=== PATIENT | male | born 1985 | race Caucasian/White ===

== ENCOUNTER 2016-06-18 18:44 | Emergency (ER) | payer OTHER ==
[2016-06-18] MEDS ORDERED: KETOROLAC TROMETHAMINE 60 MG/2 ML SDV IM ONE (19:57)
[2016-06-18] MEDS ORDERED: ONDANSETRON 4 MG TAB.RAPDIS SL ONE (19:57)
--- NOTE | 2016-06-18 19:57 | ER Document Report ---
ED Medical Screen (RME) - General Chief Complaint: Headache Stated Complaint: FEVER/HEADACHE Time seen by provider: 19:55 Mode of Arrival: Ambulatory Information source: Patient TRAVEL OUTSIDE OF THE [place] IN LAST 30 DAYS: No - HPI Patient complains to provider of: headache, fever, low back pain Onset: Last week Onset/Duration: Gradual, Persistent Quality of pain: Achy, Fullness, Pressure Severity: Moderate Pain Level: 3 Associated Symptoms: Fever, Headache Exacerbated by: Denies Relieved by: Denies Similar symptoms previously: No Recently seen / treated by doctor: No Notes: 06/18/16 19:56 Patient is a 30-year-old male who presents to emergency room complaining of fever and headache that's been going on every day for the past week, he reports low back pain as well, MAXIMUM TEMPERATURE was 102.3, he denies any cough, cold or congestion, no nausea, vomiting or diarrhea, no dysuria or hematuria, no sick contacts, no recent long distance - Related Data Allergies/Adverse Reactions: No Known Allergies Allergy (Verified 06/18/16 19:17) Past Medical History Endocrine Medical History: Reports: Hx Hypothyroidism Renal/ Medical History: Denies: Hx Peritoneal Dialysis Psychiatric Medical History: Reports: Hx Depression, Hx Post Traumatic Stress Disorder Traumatic Medical History: Reports: Hx Traumatic Brain Injury Past Surgical History: Reports: Hx Appendectomy - Immunizations Hx Diphtheria, Pertussis, Tetanus Vaccination: No - unknown Physical Exam - Vital signs Vitals: Temp Pulse Resp BP Pulse Ox 99.3 F 103 H 20 120/85 97 06/18/16 19:18 06/18/16 19:18 06/18/16 19:18 06/18/16 19:18 06/18/16 19:18 Course - Vital Signs Vital signs: Temp Pulse Resp BP Pulse Ox 99.3 F 103 H 20 120/85 97 06/18/16 19:18 06/18/16 19:18 06/18/16 19:18 06/18/16 19:18 06/18/16 19:18
[2016-06-18 20:42] LABS: ABSOLUTE LYMPHOCYTES (AUTO) 1.1 10^3/uL (0.5-4.7); ABSOLUTE MONOCYTES (AUTO) 1.1 10^3/uL (0.1-1.4); ABSOLUTE NEUT (AUTO) 5.4 10^3/uL (1.7-8.2); BASOPHILS % (AUTO) 0.3 % (0-2); EOSINOPHILS % (AUTO) 0.4 % (0-6); HEMOGLOBIN 13.1 g/dL (13.5-17.0); HGB HCT DIFFERENCE 0.3; LYMPHOCYTES % (AUTO) 14.4 % (13-45); MEAN CORPUSCULAR HEMOGLOBIN 26.1 pg (27.0-33.4); MEAN CORPUSCULAR HGB CONC 33.6 g/dL (32.0-36.0); MEAN CORPUSCULAR VOLUME 78 fl (80-97); MONOCYTES % (AUTO) 14.6 % (3-13); RED BLOOD COUNT 5.03 10^6/uL (4.35-5.55); RED CELL DISTRIBUTION WIDTH 14.1 % (11.5-14.0); SEGMENTED NEUTROPHILS % (AUTO) 70.3 % (42-78); WHITE BLOOD COUNT 7.7 10^3/uL (4.0-10.5)
[2016-06-18 20:57] LABS: APPEARANCE,URINE CLEAR; BILIRUBIN,URINE NEGATIVE (NEGATIVE); GLUCOSE, URINE NEGATIVE (NEGATIVE); KETONES,URINE NEGATIVE (NEGATIVE); LEUKOCYTE ESTERASE,URINE NEGATIVE (NEGATIVE); NITRITE,URINE NEGATIVE (NEGATIVE); PROTEIN,URINE NEGATIVE (NEGATIVE); URINE SPECIFIC GRAVITY 1.016; UROBILINOGEN,URINE NEGATIVE mg/dL (<2.0)
[2016-06-18 20:59] LABS: ALANINE AMINOTRANSFERASE 25 U/L (21-72); ALBUMIN 4.2 g/dL (3.5-5.0); ALKALINE PHOSPHATASE 71 U/L (38-126); ANION GAP 13 (5-19); ASPARTATE AMINO TRANSFERASE 13 U/L (17-59); BILIRUBIN,DIRECT 0.1 mg/dL (0.0-0.4); BILIRUBIN,TOTAL 0.5 mg/dL (0.2-1.3); BLOOD UREA NITROGEN 13 mg/dL (7-20); CALCIUM 9.5 mg/dL (8.4-10.2); CARBON DIOXIDE 26 mmol/L (22-30); CHLORIDE 104 mmol/L (98-107); CREATININE RESULT 0.99 mg/dL (0.52-1.25); GLUCOSE 93 mg/dL (75-110); POTASSIUM 4.3 mmol/L (3.6-5.0); SODIUM 143.1 mmol/L (137-145); TOTAL PROTEIN 7.6 g/dL (6.3-8.2)
[2016-06-18] MEDS ORDERED: LORAZEPAM INJ 2 MG/1 ML VIAL IV ONE (22:24)
[2016-06-18] MEDS ORDERED: LIDOCAINE 1%/EPINEPHRINE INJ 20 ML VIAL INJ ONE (22:24)
[2016-06-18] MEDS ORDERED: NORMAL SALINE 1000 ML 1,000 ML IV ONE (22:24)
[2016-06-18] MEDS ORDERED: PROCHLORPERAZINE EDISYLATE INJ 10 MG/2 ML VIAL IV ONE (22:27)
--- NOTE | 2016-06-19 01:50 | ER Document Report ---
ED General - General Chief Complaint: Headache Stated Complaint: FEVER/HEADACHE Mode of Arrival: Ambulatory Notes: Patient is a 30-year-old male with past medical history of migraine headaches who presents with 2 days of fever and headache. Describes the headache as a diffuse bitemporal, constant, throbbing headache. It is worsened by light and sounds. States this feels similar primary migraine headaches but he has never had this in conjunction with a fever. Denies any neck pain, altered mental status, vomiting, cough, sputum production or abdominal pain. He has not seen his primary care doctor regarding today's concerns. He has not tried anything to improve his symptoms began ibuprofen which he states did not provide any relief. No known sick contacts. TRAVEL OUTSIDE OF THE [place] IN LAST 30 DAYS: No - Related Data Allergies/Adverse Reactions: No Known Allergies Allergy (Verified 06/18/16 19:17) Past Medical History - General Information source: Patient - Social History Smoking Status: Never Smoker Chew tobacco use (# tins/day): No Frequency of alcohol use: Rare Drug Abuse: None Lives with: Spouse/Significant other Family History: Reviewed & Not Pertinent Endocrine Medical History: Reports: Hx Hypothyroidism Renal/ Medical History: Denies: Hx Peritoneal Dialysis Psychiatric Medical History: Reports: Hx Depression, Hx Post Traumatic Stress Disorder Traumatic Medical History: Reports: Hx Traumatic Brain Injury Past Surgical History: Reports: Hx Appendectomy - Immunizations Hx Diphtheria, Pertussis, Tetanus Vaccination: No - unknown Review of Systems - Review of Systems Notes: Constitutional: Positive for fever. HENT: Negative for sore throat. Eyes: Negative for visual changes. Cardiovascular: Negative for chest pain. Respiratory: Negative for shortness of breath. Gastrointestinal: Negative for abdominal pain, vomiting or diarrhea. Genitourinary: Negative for dysuria. Musculoskeletal: Negative for back pain. Skin: Negative for rash. Neurological: Positive for headaches, negative for weakness or numbness. 10 point ROS negative except as marked above and in HPI. Physical Exam - Vital signs Vitals: Temp Pulse Resp BP Pulse Ox 99.3 F 103 H 20 120/85 97 06/18/16 19:18 06/18/16 19:18 06/18/16 19:18 06/18/16 19:18 06/18/16 19:18 Interpretation: Tachycardic Notes: PHYSICAL EXAMINATION: GENERAL: Well-appearing, well-nourished and in no acute distress. HEAD: Atraumatic, normocephalic. EYES: Pupils equal round and reactive to light, extraocular movements intact, sclera anicteric, conjunctiva are normal. ENT: nares patent, oropharynx clear without exudates. Moist mucous membranes. NECK: Normal range of motion, supple without lymphadenopathy. No meningismus. LUNGS: Breath sounds clear to auscultation bilaterally and equal. No wheezes rales or rhonchi. HEART: Regular rate and rhythm without murmurs ABDOMEN: Soft, nontender, normoactive bowel sounds. No guarding, no rebound. No masses appreciated. EXTREMITIES: Normal range of motion, no pitting or edema. No cyanosis. NEUROLOGICAL: No focal neurological deficits. Moves all extremities spontaneously and on command. PSYCH: Normal mood, normal affect. SKIN: Warm, Dry, normal turgor, no rashes or lesions noted. Course - Re-evaluation Re-evalutation: 06/19/16 01:50 Patient's presentation of a headache in the conjunction of fever likely represents a headache secondary to fever possibly migrainous. He is overall very well in appearance, nontoxic, vitals within normal limits. Laboratories unremarkable. However, given patient's reported fever at home with an associated headache a lumbar puncture was performed to exclude an acute bacterial meningitis. I do not suspect an acute encephalitis given his normal mental status. Results of the CSF are pending at this time. Patient has had complete resolution of his headache here with an administration of a migraine cocktail. 06/19/16 02:45 Patient continues to have resolution of his headache. CSF samples are unremarkable and do not demonstrate any evidence of an acute bacterial meningitis.At this time will discharge with return precautions and follow-up recommendations. Verbal discharge instructions given a the bedside and opportunity for questions given. Medication warnings reviewed. Patient is in agreement with this plan and has verbalized understanding of return precautions and the need for primary care follow-up in the next 24-72 hours. - Vital Signs Vital signs: Temp Pulse Resp BP Pulse Ox 99.3 F 103 H 20 120/85 97 06/18/16 19:18 06/18/16 19:18 06/18/16 19:18 06/18/16 19:18 06/18/16 19:18 - Laboratory Result Diagrams: 06/18/16 20:20 06/18/16 20:20 Laboratory results interpreted by me: 06/18/16 06/18/16 06/18/16 20:20 20:20 20:25 Hgb 13.1 L MCV 78 L MCH 26.1 L RDW 14.1 H Monocytes % 14.6 H AST 13 L Urine Blood SMALL H CSF WBC 06/19/16 00:40 Hgb MCV MCH RDW Monocytes % AST Urine Blood CSF WBC 8 H Discharge - Discharge Clinical Impression: Fever Qualifiers: Fever type: unspecified Qualified Code(s): R50.9 - Fever, unspecified Headache Qualifiers: Headache type: unspecified Headache chronicity pattern: acute headache Intractability: not intractable Qualified Code(s): R51 - Headache Condition: Good Disposition: HOME, SELF-CARE Additional Instructions: Your lumbar puncture was normal today. The remainder labs likewise have remained normal. Follow-up with your primary care doctor regarding today's concerns. Return if you become confused, develop persistent vomiting, you have worsening of your headache, or any other symptoms that are concerning to you.
[2016-06-19 02:03] LABS: APPEARANCE ALL TUBES CLEAR
[2016-06-19 02:04] LABS: RBC AVERAGE 109.5; RBC DILUENT USED NONE USED; RBC DILUTION FACTOR 1; RBC SIDE 1 108; RBC SIDE 2 111; TOTAL RBC SQUARES COUNTED 225
[2016-06-19 02:05] LABS: WHITE BLOOD CELL,CSF 8 /uL (0-5)
[2016-06-19 02:06] LABS: APPEARANCE ALL TUBES CLEAR
[2016-06-19 02:07] LABS: RBC AVERAGE 0.5; RBC DILUENT USED NONE USED; RBC DILUTION FACTOR 1; RBC SIDE 1 1; RBC SIDE 2 0; TOTAL RBC SQUARES COUNTED 225
[2016-06-19 02:08] LABS: GLUCOSE,CSF 55 mg/dL (40-70); WHITE BLOOD CELL,CSF 1 /uL (0-5)
[2016-06-19 03:30] VITALS: BP 120/75
== END 2016-06-19 03:10 | disposition home or self-care (01) ==
LOC: ER 18:44
PROC: 009U3ZX Drainage of Spinal Canal, Percutaneous Approach, Diagnostic (ICD-10-PCS; principal; 2016-06-18)
DX: R51 Headache (principal); R50.9 Fever, unspecified; Z86.69 Personal history of other diseases of the nervous system and sense organs; Z87.820 Personal history of traumatic brain injury
CPT/HCPCS: 99284; 96372; 96361; 96374; 96375; 36415; 87040; 87070; 87205; 85025; 89050; 82945; 84157; 80053; 81001; 62270; J1885; S0119; J3490; J2060; J0780; J7030

== ENCOUNTER 2016-06-24 08:35 | Emergency (ER) | payer OTHER ==
[2016-06-24] MEDS ORDERED: ACETAMINOPHEN 325 MG TABLET PO ONE (09:21)
[2016-06-24] MEDS ORDERED: NORMAL SALINE 1000 ML 1,000 ML IV PRN (09:21)
[2016-06-24] MEDS ORDERED: CEFTRIAXONE 1 GM/D5W RTU 50 ML IV ONE (09:23)
--- NOTE | 2016-06-24 09:23 | ER Document Report ---
ED Medical Screen (RME) - General Chief Complaint: Fever Stated Complaint: FEVER Mode of Arrival: Ambulatory Information source: Patient, [facility] Records Notes: 30 yr old male presents with complaints of fever with no other ocmplaints except for headache mild. Patient notes fever has been ongoing now for 8 days, admits to taking Motrin prior to arrival. Patient was seen here head CBC CMP lumbar puncture performed with no obvious source of infection PHYSICAL EXAMINATION: GENERAL: Well-appearing, well-nourished and in no acute distress. Febrile tachycardic HEAD: Atraumatic, normocephalic. EYES: Pupils equal round extraocular movements intact, conjunctiva are normal. ENT: Nares patent NECK: Normal range of motion LUNGS: No respiratory distress Musculoskeletal: Normal range of motion NEUROLOGICAL: Normal speech, normal gait. PSYCH: Normal mood, normal affect. SKIN: Warm, Dry, normal turgor, no rashes or lesions noted. I have greeted and performed a rapid initial assessment of this patient. A comprehensive ED assessment and evaluation of the patient, analysis of test results and completion of the medical decision making process will be conducted by additional ED providers. TRAVEL OUTSIDE OF THE [place] IN LAST 30 DAYS: No - Related Data Allergies/Adverse Reactions: No Known Allergies Allergy (Verified 06/18/16 19:17) Past Medical History Endocrine Medical History: Reports: Hx Hypothyroidism Renal/ Medical History: Denies: Hx Peritoneal Dialysis Psychiatric Medical History: Reports: Hx Depression, Hx Post Traumatic Stress Disorder Traumatic Medical History: Reports: Hx Traumatic Brain Injury Past Surgical History: Reports: Hx Appendectomy - Immunizations Hx Diphtheria, Pertussis, Tetanus Vaccination: No - unknown Physical Exam - Vital signs Vitals: Temp Pulse Resp BP Pulse Ox 101.0 F H 132 H 16 120/91 H 95 06/24/16 08:38 06/24/16 08:38 06/24/16 08:38 06/24/16 08:38 06/24/16 08:38 Course - Vital Signs Vital signs: Temp Pulse Resp BP Pulse Ox 101.0 F H 132 H 16 120/91 H 95 06/24/16 08:38 06/24/16 08:38 06/24/16 08:38 06/24/16 08:38 06/24/16 08:38
[2016-06-24 09:50] LABS: ABSOLUTE EOSINOPHILS # (AUTO) 0.1 10^3/uL (0.0-0.6); ABSOLUTE MONOCYTES (AUTO) 0.8 10^3/uL (0.1-1.4); ABSOLUTE NEUT (AUTO) 5.9 10^3/uL (1.7-8.2); BASOPHILS % (AUTO) 0.3 % (0-2); EOSINOPHILS % (AUTO) 0.9 % (0-6); HEMATOCRIT 37.4 % (37.9-51.0); HEMOGLOBIN 12.7 g/dL (13.5-17.0); HGB HCT DIFFERENCE 0.7; LYMPHOCYTES % (AUTO) 12.8 % (13-45); MEAN CORPUSCULAR HEMOGLOBIN 25.5 pg (27.0-33.4); MEAN CORPUSCULAR HGB CONC 33.9 g/dL (32.0-36.0); MEAN CORPUSCULAR VOLUME 75 fl (80-97); MONOCYTES % (AUTO) 10.5 % (3-13); RED BLOOD COUNT 4.97 10^6/uL (4.35-5.55); RED CELL DISTRIBUTION WIDTH 13.9 % (11.5-14.0); SEGMENTED NEUTROPHILS % (AUTO) 75.5 % (42-78); WHITE BLOOD COUNT 7.8 10^3/uL (4.0-10.5)
[2016-06-24 09:58] LABS: APPEARANCE,URINE CLEAR; BILIRUBIN,URINE NEGATIVE (NEGATIVE); GLUCOSE, URINE NEGATIVE (NEGATIVE); KETONES,URINE NEGATIVE (NEGATIVE); LEUKOCYTE ESTERASE,URINE NEGATIVE (NEGATIVE); NITRITE,URINE NEGATIVE (NEGATIVE); PROTEIN,URINE NEGATIVE (NEGATIVE); URINE SPECIFIC GRAVITY 1.029
[2016-06-24 10:10] LABS: ALANINE AMINOTRANSFERASE 25 U/L (21-72); ALKALINE PHOSPHATASE 70 U/L (38-126); ANION GAP 15 (5-19); ASPARTATE AMINO TRANSFERASE 11 U/L (17-59); BILIRUBIN,DIRECT 0.3 mg/dL (0.0-0.4); BILIRUBIN,TOTAL 0.6 mg/dL (0.2-1.3); BLOOD UREA NITROGEN 11 mg/dL (7-20); CALCIUM 8.9 mg/dL (8.4-10.2); CARBON DIOXIDE 24 mmol/L (22-30); CHLORIDE 104 mmol/L (98-107); CREATININE RESULT 0.91 mg/dL (0.52-1.25); GLUCOSE 108 mg/dL (75-110); LIPASE 40.6 U/L (23-300); POTASSIUM 4.1 mmol/L (3.6-5.0); SODIUM 143.3 mmol/L (137-145); TOTAL PROTEIN 7.7 g/dL (6.3-8.2)
--- NOTE | 2016-06-24 10:11 | ER Document Report ---
ED Fever - General Mode of Arrival: Ambulatory Information source: Patient TRAVEL OUTSIDE OF THE [place] IN LAST 30 DAYS: No - HPI Patient complains to provider of: Fever Onset: Other - 8 days ago Onset/Duration: Constant Associated symptoms: Other - see notes above <GREGORIO GANN - Last Filed: 06/24/16 10:21> <ANDREW HORTON - Last Filed: 06/24/16 11:08> - General Chief Complaint: Fever Stated Complaint: FEVER Notes: 30 year old male with history of hyperthyroidism presents to the ED complaining of a continuous fever that started 8 days ago. Patient denies sore throat, nausea, vomiting, diarrhea, cough, cold like symptoms, chest pain, and shortness of breath. Patient denies feeling any swollen lymph nodes. Patient was given Tylenol before his X-ray and states that it helped temporarily, but the fever returned as soon as the medication wore off. (GREGORIO GANN) - Related Data Allergies/Adverse Reactions: No Known Allergies Allergy (Verified 06/18/16 19:17) Past Medical History - General Information source: Patient, [facility] Records - Social History Smoking Status: Never Smoker Family History: Reviewed & Not Pertinent Patient has suicidal ideation: No Patient has homicidal ideation: No Endocrine Medical History: Reports: Hx Hypothyroidism Renal/ Medical History: Denies: Hx Peritoneal Dialysis Psychiatric Medical History: Reports: Hx Depression, Hx Post Traumatic Stress Disorder Traumatic Medical History: Reports: Hx Traumatic Brain Injury Past Surgical History: Reports: Hx Appendectomy - Immunizations Hx Diphtheria, Pertussis, Tetanus Vaccination: No - unknown <GREGORIO GANN - Last Filed: 06/24/16 10:21> Review of Systems - Review of Systems Constitutional: See HPI, Fever EENT: No symptoms reported. denies: Throat pain Cardiovascular: No symptoms reported. denies: Chest pain Respiratory: No symptoms reported. denies: Cough, Short of breath Gastrointestinal: No symptoms reported. denies: Diarrhea, Nausea, Vomiting Genitourinary: No symptoms reported Male Genitourinary: No symptoms reported Musculoskeletal: No symptoms reported Skin: No symptoms reported Hematologic/Lymphatic: No symptoms reported Neurological/Psychological: No symptoms reported -: Yes All other systems reviewed and negative <GREGORIO GANN - Last Filed: 06/24/16 10:21> Physical Exam <GREGORIO GANN - Last Filed: 06/24/16 10:21> - Vital signs Interpretation: Normal, Febrile <ANDREW HORTON - Last Filed: 06/24/16 11:08> - Vital signs Vitals: Temp Pulse Resp BP Pulse Ox 101.0 F H 132 H 16 120/91 H 95 06/24/16 08:38 06/24/16 08:38 06/24/16 08:38 06/24/16 08:38 06/24/16 08:38 - Notes Notes: GENERAL: VS as per nursing doc. Well-appearing, well-nourished and in no acute distress. HEAD: Atraumatic, normocephalic. EYES: Pupils equal round and reactive to light, extraocular movements intact, sclera anicteric, no conjunctival injection or discharge. ENT: Nares patent, oropharynx clear without exudates, moist mucous membranes. NECK: Normal range of motion, supple without lymphadenopathy. LUNGS: Breath sounds clear to auscultation bilaterally and equal. No wheezes rales or rhonchi. HEART: Regular rate and rhythm without murmurs. ABDOMEN: Soft, non-tender, normoactive bowel sounds. No guarding, no rebound. No masses appreciated. No North sign. No hepatosplenomegaly BACK: No CVA tenderness. EXTREMITIES: Normal range of motion, no calf tenderness, no edema. NEUROLOGICAL: Cranial nerves grossly intact. Normal speech. Normal sensory and motor exams. No meningeal signs. PSYCH: Normal mood, normal affect. SKIN: Warm, slightly moist, normal turgor, no lesions noted. LYMPH: No axillary inguinal supraclavicular or cervical adenopathy noted. ( ANDREW HORTON) Course - Laboratory Result Diagrams: 06/24/16 09:25 06/24/16 09:25 <GANNGREGORIO PRICE - Last Filed: 06/24/16 10:21> - Laboratory Result Diagrams: 06/24/16 09:25 06/24/16 09:25 - Diagnostic Test Radiology reviewed: Image reviewed, Reports reviewed - RLL Pneumonia <ANDREW HORTON - Last Filed: 06/24/16 11:08> - Re-evaluation Re-evalutation: 06/24/16 10:25 Patient does not have typical symptoms of pneumonia even after second questioning, he reports no cough congestion, chest pain or breathing difficulty. We'll place the patient on Levaquin. He has a [facility] provider he can follow up with and I encourage this as it appears atypical in presentation except for the fever. He understands this is mandatory and there is further differential involved. 06/24/16 11:06 Patient has mono by his test which is more consistent with this prolonged fevers. I will educate him on this as well as no contact sports or similar though at this point I do not note any splenomegaly. (ANDREW HORTON) - Vital Signs Vital signs: Temp Pulse Resp BP Pulse Ox 101.0 F H 132 H 16 120/91 H 95 06/24/16 08:38 06/24/16 08:38 06/24/16 08:38 06/24/16 08:38 06/24/16 08:38 - Laboratory Laboratory results interpreted by me: 06/24/16 06/24/16 06/24/16 09:25 09:25 09:25 Hgb 12.7 L Hct 37.4 L MCV 75 L MCH 25.5 L Lymphocytes % 12.8 L AST 11 L Urine Urobilinogen 2.0 H Salicylates < 1.0 L Monotest 06/24/16 09:25 Hgb Hct MCV MCH Lymphocytes % AST Urine Urobilinogen Salicylates Monotest POSITIVE H Discharge <GREGORIO GANN - Last Filed: 06/24/16 10:21> <ANDREW HORTON - Last Filed: 06/24/16 11:08> - Discharge Clinical Impression: Right lower lobe pneumonia, Mononucleosis Condition: Good Disposition: HOME, SELF-CARE Instructions: Acetaminophen, Fever ([facility]), Pneumonia ([facility]), Mononucleosis ([facility]) Additional Instructions: Please ensure that you follow up with her primary care provider since you have an atypical presentation for what clearly appears to be pneumonia on x-ray. Finish all of the antibiotics as directed. Return if you're worsening, develops breathing difficulty or other concerns. Prescriptions: Levofloxacin [Levaquin 750 mg Tablet] 750 mg PO DAILY #10 tablet Referrals: JEOVANY VILLEGAS MD [Primary Care Provider] - Follow up in 1 week Scribe Attestation: 06/24/16 10:30 I personally performed the services described in the documentation, reviewed and edited the documentation which was dictated to the scribe in my presence, and it accurately records my words and actions. (ANDREW HORTON) Scribe Documentation - Scribe Written by Rick:: Rick Messina, 06/24/2016 1024 acting as scribe for :: Clare <GREGORIO GANN - Last Filed: 06/24/16 10:21>
[2016-06-24 10:26] LABS: CREATINE KINASE MB < 0.22 ng/mL (<4.55); TROPONIN I < 0.012 ng/mL
[2016-06-24 11:17] VITALS: BP 112/77
== END 2016-06-24 11:16 | disposition home or self-care (01) ==
LOC: ER 08:35
DX: J18.9 Pneumonia, unspecified organism (principal); B27.90 Infectious mononucleosis, unspecified without complication; R50.9 Fever, unspecified; E03.9 Hypothyroidism, unspecified; Z87.820 Personal history of traumatic brain injury
CPT/HCPCS: 99284; 96365; 36415; 87040; 87070; 87086; 82553; 87880; 83690; 80307; 85025; 87088; 86308; 80053; 81001; 84484; 87186; 87804; 71020; 70450; J7030; J0696

== ENCOUNTER 2016-11-12 23:52 | Emergency (ER) | payer OTHER ==
[2016-11-13 00:30] LABS: ABSOLUTE EOSINOPHILS # (AUTO) 0.1 10^3/uL (0.0-0.6); ABSOLUTE LYMPHOCYTES (AUTO) 0.9 10^3/uL (0.5-4.7); ABSOLUTE MONOCYTES (AUTO) 1.1 10^3/uL (0.1-1.4); ABSOLUTE NEUT (AUTO) 9.5 10^3/uL (1.7-8.2); BASOPHILS % (AUTO) 0.2 % (0-2); EOSINOPHILS % (AUTO) 0.9 % (0-6); HEMOGLOBIN 13.2 g/dL (13.5-17.0); HGB HCT DIFFERENCE -0.4; MEAN CORPUSCULAR HEMOGLOBIN 25.5 pg (27.0-33.4); MEAN CORPUSCULAR VOLUME 77 fl (80-97); MONOCYTES % (AUTO) 9.1 % (3-13); RED BLOOD COUNT 5.18 10^6/uL (4.35-5.55); RED CELL DISTRIBUTION WIDTH 13.7 % (11.5-14.0); SEGMENTED NEUTROPHILS % (AUTO) 81.8 % (42-78); WHITE BLOOD COUNT 11.6 10^3/uL (4.0-10.5)
[2016-11-13 00:41] LABS: ALANINE AMINOTRANSFERASE 45 U/L (21-72); ALBUMIN 4.5 g/dL (3.5-5.0); ALKALINE PHOSPHATASE 85 U/L (38-126); ANION GAP 13 (5-19); ASPARTATE AMINO TRANSFERASE 26 U/L (17-59); BILIRUBIN,DIRECT 0.3 mg/dL (0.0-0.4); BILIRUBIN,TOTAL 0.6 mg/dL (0.2-1.3); BLOOD UREA NITROGEN 11 mg/dL (7-20); CALCIUM 9.1 mg/dL (8.4-10.2); CARBON DIOXIDE 24 mmol/L (22-30); CHLORIDE 103 mmol/L (98-107); CREATININE RESULT 0.92 mg/dL (0.52-1.25); GLUCOSE 116 mg/dL (75-110); POTASSIUM 4.3 mmol/L (3.6-5.0); SODIUM 139.5 mmol/L (137-145); TOTAL PROTEIN 8.1 g/dL (6.3-8.2)
[2016-11-13] MEDS ORDERED: NORMAL SALINE 1000 ML 1,000 ML IV ONE ×2 (01:08→03:06)
[2016-11-13] MEDS ORDERED: ACETAMINOPHEN 325 MG TABLET PO ONE (01:08)
--- NOTE | 2016-11-13 01:10 | ER Document Report ---
ED General - General Chief Complaint: Chest Congestion Stated Complaint: WEAKNESS Time Seen by Provider: 11/13/16 01:03 Notes: Patient is a 30-year-old male who presents with complaint of difficulty breathing and congestion. He presents tachycardic but without fever. He says he has had body aches and chills at home is a 3's had a fever. He said he did have pneumonia last month. His daughter was sick a week ago. He is on thyroid medication. He has not had any recent changes in his thyroid medications. Said no vomiting. No diarrhea. He denies any chest pain. He says he does have some pain in his back when he takes a deep breath. He says he also has some pain in his abdomen when he takes in a deep breath. He denies any coughing. He has no other complaints at this time. TRAVEL OUTSIDE OF THE [place] IN LAST 30 DAYS: No - Related Data Allergies/Adverse Reactions: No Known Allergies Allergy (Verified 11/12/16 23:59) Home Medications: Current Home Medications Levothyroxine Sodium [Synthroid 50 Mcg Tablet] 1 tab PO DAILY 11/13/16 [History] Meclizine HCl 1 tab PO TID 11/13/16 [History] Paroxetine HCl [Paxil 20 mg Tablet] 1 tab PO DAILY 11/13/16 [History] Sumatriptan Succinate 1 tab PO ASDIR PRN 11/13/16 [History] Past Medical History - Social History Smoking Status: Never Smoker Chew tobacco use (# tins/day): No Frequency of alcohol use: None Drug Abuse: None Family History: Reviewed & Not Pertinent Patient has suicidal ideation: No Patient has homicidal ideation: No Neurological Medical History: Reports: Hx Migraine Endocrine Medical History: Reports: Hx Hypothyroidism Renal/ Medical History: Denies: Hx Peritoneal Dialysis Psychiatric Medical History: Reports: Hx Depression, Hx Post Traumatic Stress Disorder Traumatic Medical History: Reports: Hx Traumatic Brain Injury Past Surgical History: Reports: Hx Appendectomy - Immunizations Hx Diphtheria, Pertussis, Tetanus Vaccination: Yes - 2017 Review of Systems - Review of Systems Notes: My Normal Review Basic REVIEW OF SYSTEMS: CONSTITUTIONAL : Body aches and chills. EENT: Denies eye, ear, throat, or mouth pain or symptoms. Denies nasal or sinus congestion. CARDIOVASCULAR: Denies chest pain. RESPIRATORY: Difficulty breathing. GASTROINTESTINAL: Denies abdominal pain. Denies nausea, vomiting, or diarrhea. Denies constipation. Last BM: MUSCULOSKELETAL: Denies neck or back pain or joint pain or swelling. SKIN: Denies rash or skin lesions. NEUROLOGICAL: Denies altered mental status or loss of consciousness. Denies headache. Denies weakness or paralysis or loss of use of either side. Denies problems with gait or speech. Denies sensory or motor loss. ALL OTHER SYSTEMS REVIEWED AND NEGATIVE. Physical Exam - Vital signs Vitals: Temp Pulse Resp BP Pulse Ox 99.5 F 136 H 18 127/78 H 97 11/13/16 00:00 11/13/16 00:00 11/13/16 00:00 11/13/16 00:00 11/13/16 00:00 - Notes Notes: General Appearance: Well nourished, alert, cooperative, no acute distress, no obvious discomfort. Well-appearing. Vitals: reviewed, See vital signs table. Head: no swelling or tenderness to the head Eyes: PERRL, EOMI, Conjuctiva clear Mouth: No decreasd moisture Neck: Supple, no neck tenderness, No thyromegaly Lungs: No wheezing, No rales, No rhonci, No accessory muscle use, good air exchange bilaterally. Heart: Tachycardic rate, Regular rythm, No murmur, no rub Abdomen: Normal BS, soft, No rigidity, No abdominal tenderness, No guarding, no rebound, no abdominal masses, no organomegaly Extremities: strength 5/5 in all extremities, good pulses in all extremities, no swelling or tenderness in the extremities, no edema. Skin: warm, dry, appropriate color, no rash Neuro: speech clear, oriented x 3, normal affect, responds appropriately to questions. Course - Re-evaluation Re-evalutation: 11/13/16 04:33 CT of the chest was obtained which the patient was having pleuritic pain in his left back, he had tachycardia upon arrival, he did not have a fever here. Patient says that he thinks had a fever of [address] was negative for pneumonia or blood clot in his lung. Suspect most likely is a viral illness. He denies any recent tick bites in the last month or 2. We still sometimes see people shank turner positive [place] spotted fever and therefore we will send titers for this. Informed him that if they do come back positive he must return to the ER for rule call him in a prescription for the appropriate antibiotic. I will not start him on an antibiotic as I think this is of low likelihood to be what is causing his symptoms at this time. Patient encouraged to return to ER immediately if he has recurrent worsening fevers, difficulty breathing, or feels unwell. Patient's tachycardia did improve greatly after receiving IV fluids. Dictation of this chart was performed using voice recognition software; therefore, there may be some unintended grammatical errors. - Vital Signs Vital signs: Temp Pulse Resp BP Pulse Ox 99.5 F 136 H 15 135/75 H 99 11/13/16 00:00 11/13/16 00:00 11/13/16 02:01 11/13/16 02:01 11/13/16 02:01 - Laboratory Result Diagrams: 11/13/16 00:14 11/13/16 00:14 Laboratory results interpreted by me: 11/13/16 11/13/16 00:14 00:14 WBC 11.6 H Hgb 13.2 L MCV 77 L MCH 25.5 L Seg Neutrophils % 81.8 H Lymphocytes % 8.0 L Absolute Neutrophils 9.5 H Glucose 116 H Discharge - Discharge Clinical Impression: Shortness of breath Fever Qualifiers: Fever type: unspecified Qualified Code(s): R50.9 - Fever, unspecified Back pain Qualifiers: Back pain location: thoracic back pain Chronicity: acute Back pain laterality: left Qualified Code(s): M54.6 - Pain in thoracic spine Condition: Good Disposition: HOME, SELF-CARE Additional Instructions: Your CT scan of the chest did not show any evidence of pneumonia. There is no evidence of a blood clot in your lungs either. The exact cause of your body aches, fever, and difficulty breathing is not 100% clear at this time. You most likely have a viral illness that is causing this. I did send your blood work to test for [place] spotted fever. That is a tickborne illness. I think this is less likely being that you have not been bitten by tick; however, we typically see this very frequently in this area of the country this time a year and will give similar symptoms to what you are experiencing. If you test is positive they should call you in the next 2-3 days to inform you of the positive test. If it is positive you will be called in an antibiotic. If you do not hear from us and want to know your test results please call the number [phone]. If your test is positive then you would need to speak with 1 of the physicians to be being prescribed the appropriate antibiotic. Return to the ER if you have recurrent fevers, worsening difficulty breathing, worsening pain, or feel unwell.
--- NOTE | 2016-11-13 01:44 | RADIOLOGY REPORT (SQ) ---
EXAM DESCRIPTION: CHEST SINGLE VIEW COMPLETED DATE/TIME: 11/13/2016 1:20 am REASON FOR STUDY: chest congestion COMPARISON: 4.24.17 EXAM PARAMETERS: NUMBER OF VIEWS: One view. TECHNIQUE: Single frontal radiographic view of the chest acquired. RADIATION DOSE: NA LIMITATIONS: None. FINDINGS: LUNGS AND PLEURA: No opacities, masses or pneumothorax. No pleural effusion. MEDIASTINUM AND HILAR STRUCTURES: No masses. Contour normal. HEART AND VASCULAR STRUCTURES: Heart normal in size. Normal vasculature. BONES: No acute findings. HARDWARE: None in the chest. OTHER: No other significant finding. IMPRESSION: NO ACUTE RADIOGRAPHIC FINDING IN THE CHEST. TECHNICAL DOCUMENTATION: JOB ID: [id number]
--- NOTE | 2016-11-13 04:22 | RADIOLOGY REPORT (SQ) ---
EXAM DESCRIPTION: CTA CHEST COMPLETED DATE/TIME: 11/13/2016 3:52 am REASON FOR STUDY: pleuritic chest pain on left COMPARISON: CR, 11/13/2016. TECHNIQUE: CT scan of the chest performed using helical scanning technique with dynamic intravenous contrast injection. Images reviewed with lung, soft tissue and bone windows. Reconstructed coronal and sagittal MPR images reviewed. Additional 3 dimensional post-processing performed to develop Maximal Intensity Projection images ([place] P). All images stored on PACS. All CT scanners at this facility use dose modulation, iterative reconstruction, and/or weight based d osing when appropriate to reduce radiation dose to as low as reasonably achievable (ALARA). [facility]: Dose Right [facility]: CareDose [facility]: Dose Right [facility]: Teradose 4D [facility]: Cortrium CONTRAST TYPE AND DOSE: contrast/concentration: Isovue 370.00 mg/ml; Total Contrast Delivered: 99.0 ml; Total Saline Delivered: 62.0 ml Contrast bolus optimized for the pulmonary arteries. Not diagnostic for the aorta. RENAL FUNCTION: None required. The patient is less than 50 years old. RADIATION DOSE: Up-to-date CT equipment and radiation dose reduction techniques were employed. CTDIv ol: 15.5 mGy. DLP: 520 mGy-cm. . LIMITATIONS: None. FINDINGS: LUNGS AND PLEURA: No masses, infiltrates, pneumothorax. No pleural effusions, calcificati ons. AORTA AND GREAT VESSELS: No aneurysm. Contrast bolus not optimized for the aorta. HEART: No pericardial effusion. No significant coronary artery calcifications. PULMONARY ARTERIES: No emboli visualized in the main pulmonary arteries or the segmental branches. HILAR AND MEDIASTINAL STRUCTURES: No identified masses or abnormal nodes. HARDWARE: None in the chest. UPPER ABDOMEN: No significant findings. Limited exam. THYROID AND OTHER SOFT TISSUES: No masses. No adenopathy. BONES: No acute or significant finding. 3D MIPS: Confirm above findings. OTHER: No other significant finding. IMPRESSION: NORMAL CTA OF THE CHEST. NO PULMONARY EMBOLI. COMMENT: Quality ID # [id number]: Final reports with documentation of one or more dose reduction techniques (e.g., Automated exposure control, adjustment of the mA and/or kV according to patient size, use of iterative reconstruction technique) TECHNICAL DOCUMENTATION: JOB ID: [id number] [employer]- All Rights Reserved
[2016-11-13 04:54] VITALS: BP 118/74
[2016-11-14 21:08] LABS: ROCKY MTN SPOTTED FEV IGG EIA Negative (Negative)
== END 2016-11-13 04:59 | disposition home or self-care (01) ==
LOC: ER 23:52
DX: R06.02 Shortness of breath (principal); M54.6 Pain in thoracic spine; R50.9 Fever, unspecified; R09.89 Other specified symptoms and signs involving the circulatory and respiratory systems; R00.0 Tachycardia, unspecified; R06.00 Dyspnea, unspecified; R53.1 Weakness; M79.1 Myalgia; E03.9 Hypothyroidism, unspecified; Z87.820 Personal history of traumatic brain injury; F43.10 Post-traumatic stress disorder, unspecified
CPT/HCPCS: 99285; 96360; 96361; 36415; 84443; 85025; 80053; 86757 ×2; 87804; 71010; 71275; J7030

== ENCOUNTER 2018-05-13 00:07 | Emergency (ER) | payer OTHER ==
[2018-05-13] MEDS ORDERED: DIPHENHYDRAMINE HCL 50 MG/ML VIAL IV ONE (01:17)
[2018-05-13] MEDS ORDERED: RINGERS SOLUTION,LACTATED 1,000 ML IV ONE (01:17)
[2018-05-13] MEDS ORDERED: PROCHLORPERAZINE EDISYLATE INJ 10 MG/2 ML VIAL IV ONE (01:17)
[2018-05-13] MEDS ORDERED: KETOROLAC TROMETHAMINE INJ/PF 30 MG/1 ML SDV IV ONE (01:17)
--- NOTE | 2018-05-13 03:47 | ER Document Report ---
ED Headache - General Chief Complaint: Headache Stated Complaint: HEADACHE Time Seen by Provider: 05/13/18 01:17 Notes: Patient is a 32-year-old male presents to the emergency department for generalized headache in his forehead. States that started around 8:00 this evening. Patient is admitting to photophobia but is denying any nausea, vomiting. Patient states he does have a history of migraines and took his at home sumatriptan but he feels as though that has made the pain worse. Patient's denying any fever, nuchal rigidity or neck pain, chest pain, shortness of breath, URI symptoms. Past medical history: Migraines Medications: Sumatriptan Allergies: None TRAVEL OUTSIDE OF THE [place] IN LAST 30 DAYS: No - Related Data Allergies/Adverse Reactions: No Known Allergies Allergy (Verified 12/26/16 07:30) Past Medical History - General Information source: Patient - Social History Smoking Status: Unknown if Ever Smoked Family History: Reviewed & Not Pertinent Patient has suicidal ideation: No Patient has homicidal ideation: No Neurological Medical History: Reports: Hx Migraine Endocrine Medical History: Reports: Hx Hypothyroidism Renal/ Medical History: Denies: Hx Peritoneal Dialysis Psychiatric Medical History: Reports: Hx Depression, Hx Post Traumatic Stress Disorder Traumatic Medical History: Reports: Hx Traumatic Brain Injury Past Surgical History: Reports: Hx Appendectomy - Immunizations Hx Diphtheria, Pertussis, Tetanus Vaccination: Yes - 2017 Review of Systems - Review of Systems Constitutional: No symptoms reported EENT: See HPI Cardiovascular: No symptoms reported Respiratory: No symptoms reported Gastrointestinal: No symptoms reported Genitourinary: No symptoms reported Male Genitourinary: No symptoms reported Musculoskeletal: No symptoms reported Skin: No symptoms reported Hematologic/Lymphatic: No symptoms reported Neurological/Psychological: See HPI Physical Exam - Vital signs Vitals: Temp Pulse BP Pulse Ox 98.5 F 90 139/91 H 100 05/13/18 00:36 05/13/18 00:36 05/13/18 00:36 05/13/18 00:36 - Notes Notes: GENERAL: Alert, interacts well. No acute distress. HEAD: Normocephalic, atraumatic. EYES: Pupils equal, round, and reactive to light. Extraocular movements intact. Photophobia noted ENT: Oral mucosa moist, tongue midline. NECK: Full range of motion. Supple. Trachea midline. No nuchal rigidity noted LUNGS: Clear to auscultation bilaterally, no wheezes, rales, or rhonchi. No respiratory distress. HEART: Regular rate and rhythm. No murmur ABDOMEN: Soft, non-tender. Non-distended. Bowel sounds present in all 4 quadrants. EXTREMITIES: Moves all 4 extremities spontaneously. No edema, normal radial and dorsalis pedis pulses bilaterally. No cyanosis. 5 out of 5 strength all 4 extremities BACK: no cervical, thoracic, lumbar midline tenderness. No saddle anesthesia, normal distal neurovascular exam. NEUROLOGICAL: Alert and oriented x3. Normal speech. cranial nerves II through XII grossly intact PSYCH: Normal affect, normal mood. SKIN: Warm, dry, normal turgor. No rashes or lesions noted. Course - Re-evaluation Re-evalutation: 05/13/18 03:45 Patient has been treated with Toradol, Compazine, Benadryl, IV hydration in the emergency room. Patient states his headache has since resolved and he would like to go home. Discussed close follow-up with primary care provider for continued migraine treatment. Patient voices understanding is stable for discharge. - Vital Signs Vital signs: Temp Pulse Resp BP Pulse Ox 98.5 F 90 139/91 H 100 05/13/18 00:36 05/13/18 00:36 05/13/18 00:36 05/13/18 00:36 Discharge - Discharge Clinical Impression: Migraine Qualifiers: Migraine type: unspecified Status migrainosus presence: without status migrai nosus Intractability: not intractable Qualified Code(s): G43.909 - Migraine, unspecified, not intractable, without status migrainosus Condition: Stable Disposition: HOME, SELF-CARE Instructions: Intravenous Compazine for Headaches ([facility]), Headache ([facility]), Use of Diphenhydramine, Toradol Injection ([facility]) Additional Instructions: As we discussed you have been seen and treated in the emergency department for your migraine headache. Please make sure you follow-up with your primary care provider for continued migraine treatments. Please also return to the emergency room should you have any other concerning symptoms. Forms: Return to Work
[2018-05-13 04:02] VITALS: BP 136/88
== END 2018-05-13 04:02 | disposition home or self-care (01) ==
LOC: ER 00:07
DX: G43.909 Migraine, unspecified, not intractable, without status migrainosus (principal); H53.149 Visual discomfort, unspecified
CPT/HCPCS: 99283; 96361; 96374; 96375; J1200; J1885; J0780; J7120

== ENCOUNTER 2018-10-23 08:43 | Emergency (ER) | payer OTHER ==
[2018-10-23] MEDS ORDERED: PROCHLORPERAZINE EDISYLATE INJ 10 MG/2 ML VIAL IV ONE (09:14)
[2018-10-23] MEDS ORDERED: KETOROLAC TROMETHAMINE INJ/PF 30 MG/1 ML SDV IV ONE (09:14)
[2018-10-23] MEDS ORDERED: DIPHENHYDRAMINE HCL 50 MG/ML VIAL IV ONE (09:14)
[2018-10-23] MEDS ORDERED: NORMAL SALINE 1000 ML 1,000 ML IV ONE (09:15)
--- NOTE | 2018-10-23 09:16 | ER Document Report ---
ED Medical Screen (RME) - General Chief Complaint: Headache Stated Complaint: HEADACHE,NAUSEA,VOMITING Time Seen by Provider: 10/23/18 09:14 Mode of Arrival: Ambulatory Information source: Patient Notes: 32-year-old male presented to ED for complaint of a headache for since yesterday. He states he has at least 3 headaches a week this is his normal migraines except today had some nausea and vomiting. He states it is to the left side of his head. 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 He states in the past the Compazine Toradol and Benadryl with IV fluids has helped his headache and he would appreciate that. These have been ordered. He states he does use a vapor cigarette and lives with his family. I have greeted and performed a rapid initial assessment of this patient. A comprehensive ED assessment and evaluation of the patient, analysis of test results and completion of medical decision making process will be conducted by an additional ED providers. TRAVEL OUTSIDE OF THE [place] IN LAST 30 DAYS: No - Related Data Allergies/Adverse Reactions: No Known Allergies Allergy (Verified 10/23/18 08:44) Past Medical History - Social History Chew tobacco use (# tins/day): No Frequency of alcohol use: None Drug Abuse: None Neurological Medical History: Reports: Hx Migraine Endocrine Medical History: Reports: Hx Hypothyroidism Renal/ Medical History: Denies: Hx Peritoneal Dialysis Psychiatric Medical History: Reports: Hx Depression, Hx Post Traumatic Stress Disorder Traumatic Medical History: Reports: Hx Traumatic Brain Injury Past Surgical History: Reports: Hx Appendectomy - Immunizations Hx Diphtheria, Pertussis, Tetanus Vaccination: Yes - 2016 Physical Exam - Vital signs Vitals: Temp Pulse Resp BP Pulse Ox 98.2 F 94 15 134/92 H 96 10/23/18 08:47 10/23/18 08:47 10/23/18 08:47 10/23/18 08:47 10/23/18 08:47 Course - Vital Signs Vital signs: Temp Pulse Resp BP Pulse Ox 98.2 F 94 15 134/92 H 96 10/23/18 08:47 10/23/18 08:47 10/23/18 08:47 10/23/18 08:47 10/23/18 08:47
--- NOTE | 2018-10-23 10:03 | ER Document Report ---
ED General - General Chief Complaint: Headache Stated Complaint: HEADACHE,NAUSEA,VOMITING Time Seen by Provider: 10/23/18 09:14 Mode of Arrival: Ambulatory TRAVEL OUTSIDE OF THE [place] IN LAST 30 DAYS: No - HPI Notes: 32-year-old male to the emergency department with complaints of left-sided headache since last night with associated nausea, vomiting, photophobia, phonophobia. 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 He states that he takes Excedrin typically and it seems to help. When his headache gets like this he does come to the emergency department and does well with Toradol, Compazine, Benadryl and fluids. He states that this headache is typical of when he typically needs IV medicines to help him. He states that is not his worst headache ever. He denies any focal neurological deficits. He denies any weakness in any extremity. He denies any difficulty speaking. He denies any vision changes. He denies any neck pain. Denies any fevers. He currently does not see a neurologist because he has not been able to get an appointment through the [place]. - Related Data Allergies/Adverse Reactions: No Known Allergies Allergy (Verified 10/23/18 08:44) Past Medical History - General Information source: Patient - Social History Smoking Status: Never Smoker Chew tobacco use (# tins/day): No Frequency of alcohol use: None Drug Abuse: None Family History: Reviewed & Not Pertinent Patient has suicidal ideation: No Patient has homicidal ideation: No Neurological Medical History: Reports: Hx Migraine Endocrine Medical History: Reports: Hx Hypothyroidism Renal/ Medical History: Denies: Hx Peritoneal Dialysis Psychiatric Medical History: Reports: Hx Depression, Hx Post Traumatic Stress Disorder Traumatic Medical History: Reports: Hx Traumatic Brain Injury Past Surgical History: Reports: Hx Appendectomy - Immunizations Hx Diphtheria, Pertussis, Tetanus Vaccination: Yes - 2017 Review of Systems - Review of Systems Constitutional: denies: Chills, Diaphoresis, Fever EENT: denies: Blurred vision, Double vision Cardiovascular: denies: Chest pain, Dyspnea, Syncope, Dizziness, Lightheaded Respiratory: denies: Cough, Short of breath Gastrointestinal: Nausea, Vomiting. denies: Abdominal pain, Diarrhea Genitourinary: No symptoms reported Musculoskeletal: denies: Neck pain Skin: No symptoms reported Neurological/Psychological: See HPI, Headaches -: Yes All other systems reviewed and negative Physical Exam - Vital signs Vitals: Temp Pulse Resp BP Pulse Ox 98.2 F 94 15 134/92 H 96 10/23/18 08:47 10/23/18 08:47 10/23/18 08:47 10/23/18 08:47 10/23/18 08:47 Interpretation: Normal - General General appearance: Appears well In distress: None - HEENT Head: Normocephalic, Atraumatic Pupils: PERRL Fundascopic: Normal Ears: Normal External canal: Normal Tympanic membrane: Normal Sinus: Normal Nasal: Normal Mouth/Lips: Normal Mucous membranes: Dry Pharynx: Normal Neck: Normal, Supple. No: Meningismus - No nuchal rigidity or evidence for meningeal signs - Respiratory Respiratory status: No respiratory distress Chest status: Nontender Breath sounds: Normal Chest palpation: Normal - Cardiovascular Rhythm: Regular Heart sounds: Normal auscultation Murmur: No - Back Back: Normal, Nontender - Extremities General upper extremity: Normal inspection, Normal color, Normal ROM, Normal strength General lower extremity: Normal inspection, Normal color, Normal ROM, Normal strength - Neurological Neuro grossly intact: Yes Cognition: Normal Orientation: AAOx4 [place] Coma Scale Eye Opening: Spontaneous [place] Coma Scale Verbal: Oriented Yariel Coma Scale Motor: Obeys Commands [place] Coma Scale Total: 15 Speech: Normal Cranial nerves: Normal. No: Facial palsy, Forehead sparing, Gaze palsy, Tongue deviation Cerebellar coordination: Normal - No leg drift bilaterally. 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 No: Pronator drift - Normal [id number] bilaterally Sensory: Normal - Psychological Associated symptoms: Normal affect, Normal mood - Skin Skin Temperature: Warm Skin Moisture: Dry Skin Color: Normal Course - Re-evaluation Re-evalutation: 10/23/18 10:47 Rounded on patient and he is feeling much better. His headache has completely resolved. He is tolerating p.o. roni immanuel. He has not been vomiting since arrival. We will plan to send patient home with neurology referral and see if he can go through the choice program at the [place]. We will also send home with small amount of Compazine and Benadryl. Patient agrees with the plan. Urged to return if any worsening symptoms such as focal neurological deficit, fevers, stiff neck, chest pain, shortness of breath, passing out. This is a typical migraine headache for him and it is not his worst ever. Low suspicion for SAH. Suspect more of a chronic headache syndrome that has persisted since getting his TBI. He also has no evidence for infectious etiologyhis neck is supple without any meningeal signs. He is not febrile. Will discharge home. Impression: Migraine without aura, chronic in nature. Pt feels much better, and headache has resolved. Will discharge home. Patient agrees with the plan. - Vital Signs Vital signs: Temp Pulse Resp BP Pulse Ox 98.2 F 94 15 134/92 H 96 10/23/18 08:47 10/23/18 08:47 10/23/18 08:47 10/23/18 08:47 10/23/18 08:47 Discharge - Discharge Clinical Impression: Migraine Qualifiers: Migraine type: chronic without aura Status migrainosus presence: without status migrainosus Intractability: not intractable Qualified Code(s): G43.709 - Chronic migraine without aura, not intractable, without status migrainosus Condition: Stable Disposition: HOME, SELF-CARE Instructions: Headache ([facility]) Additional Instructions: Follow up with primary care and with neurology provided. Take medicine as prescribed. Push fluids. RETURN IF WORSENING SYMPTOMS SUCH HAS INTRACTABLE VOMITING, HEADACHE, FEVER, NECK PAIN. Prescriptions: Diphenhydramine HCl [Benadryl] 25 mg PO Q8H #20 capsule Prochlorperazine Maleate [Compazine 5 Mg Tablet] 5 mg PO Q8H #6 tablet Forms: Return to Work Referrals: [facility] [Provider Group] - Follow up in 1 week
[2018-10-23 11:15] VITALS: BP 136/89
== END 2018-10-23 11:15 | disposition home or self-care (01) ==
LOC: ER 08:43
DX: G43.709 Chronic migraine without aura, not intractable, without status migrainosus (principal); R11.2 Nausea with vomiting, unspecified; Z79.899 Other long term (current) drug therapy
CPT/HCPCS: 99283; 96361; 96374; 96375; J1200; J1885; J0780; J7030